=== PATIENT | male | born 1950 ===

== ENCOUNTER 2018-05-31 09:49 | Day surgery (SDC) | payer MEDICARE ==
[~2018-05-31 09:49] MED LIST: Acetaminophen TAB* 325 MG PO PRN; Buffered Lidocaine 0.9% SYRIN* 5 ML/SYR SYRINGE INTRADERM ONE; Cyclopentolate 1% OPTH.SOL* 2 ML BTL ONE; Ketorolac 0.5% OPHTH (NF) 0.5 % 5 ML BTL ONE; Lidocaine 1%* 5 ML VIAL ONE; Lidocaine 2% EPI 1:200000 MPF*10-20 ML VIAL ONE; Neomycin/Polymy/Dex OPTH.SUSP* MAXITROL 0.1% 5 ML ONE; Phenylephrine 2.5% OPTH.SOL* 2 ML BTL ONE; Povidone Iodine 5% OPTH* 30 ML BTL ONE; Proparacaine 0.5% OPHTH.SOL* 15 ML BTL ONE; acetaZOLAMIDE TAB* 250 MG ONE
[2018-05-31] MEDS ORDERED: Midazolam* 1 MG/ML 2 ML VIAL (2 MG) ONE (12:27)
[2018-05-31 13:35] VITALS: BP 134/71
--- NOTE | 2018-05-31 17:43 | OP ---
DATE OF OPERATION: 05/31/18 - [facility] DATE OF : 50 SURGEON: Montana Mejia M.D. PREOPERATIVE DIAGNOSIS: Cataract, left eye. POSTOPERATIVE DIAGNOSIS: Cataract, left eye. OPERATIVE PROCEDURE: Extracapsular cataract extraction with intraocular lens implant and CTR, left eye. DESCRIPTION OF PROCEDURE: The patient was brought to the operating room after being given 1/2% Alcaine with epinephrine drops in the preoperative area. The eye was prepped and draped in the usual sterile fashion. Sterile drape and eyelid speculum were placed. Again, topical 1/2% Alcaine with epinephrine was given. A paracentesis incision was made at the 3 o'clock position with the No.75 blade. Clear cornea incision 2.2 x 2.2-mm was created at the 6 o'clock position starting at the anterior limbus using the 2.2-mm keratome. The anterior chamber was irrigated with 0.4 mL of 1% non-preservative intracameral lidocaine and filled with DisCoVisc. A capsulorrhexis was completed using the cystotome and the Utrata forceps. Hydrodissection was performed with balanced salt solution. The lens nucleus was removed with the Phacoemulsification handpiece without incident. Cortex was removed with the irrigation-aspiration handpiece. The capsular bag was re-inflated using DisCoVisc and an SN60WF 18.5 implant was inserted with the shooter followed by capsular tension ring ACTR12, inserted with its shooter. The irrigation- aspiration handpiece was used to remove all residual DisCoVisc. The eye was refilled with balanced salt solution and the wound checked and found to be watertight. Topical Maxitrol drops were given. Indication for complex cataract surgery: Status post vitrectomy, requiring capsular tension ring. [id number]/[facility] #: [id number] CAROL
== END 2018-05-31 13:11 | disposition home or self-care (01) ==
LOC: OREAST 09:49
PROVIDERS: ATTEND Specialist
DX: H25.812 Combined forms of age-related cataract, left eye (principal); H43.812 Vitreous degeneration, left eye; J44.9 Chronic obstructive pulmonary disease, unspecified; H52.229 Regular astigmatism, unspecified eye
CPT/HCPCS: A9270-GY; J2250; V2632

== ENCOUNTER 2018-06-28 13:00 | Day surgery (SDC) | payer MEDICARE ==
[2018-06-28] MEDS ORDERED: fentaNYL* 50 MCG/ML 2 ML VIAL (100 MCG VIAL) ONE (15:15)
[2018-06-28] MEDS ORDERED: Midazolam* 1 MG/ML 2 ML VIAL (2 MG) ONE ×2 (15:16→15:35)
[2018-06-28 16:16] VITALS: BP 132/76
--- NOTE | 2018-06-29 12:48 | OP ---
DATE OF OPERATION: 06/28/18 [facility] DATE OF : 50 SURGEON: Montana Mejia M.D. PREOPERATIVE DIAGNOSIS: Cataract, right eye. POSTOPERATIVE DIAGNOSIS: Cataract, right eye. OPERATIVE PROCEDURE: Extracapsular cataract extraction with intraocular lens implant and CTR, right eye. DESCRIPTION OF PROCEDURE: The patient was brought to the operating room after being given 1/2% Alcaine with epinephrine drops in the preoperative area. The eye was prepped and draped in the usual sterile fashion. Sterile drape and eyelid speculum were placed. Again, topical 1/2% Alcaine with epinephrine was given. A paracentesis incision was made at the 9 o'clock position with the No.75 blade. Clear cornea incision 2.2 x 2.2-mm was created at the 12 o'clock position starting at the anterior limbus using the 2.2-mm keratome. The anterior chamber was irrigated with 0.4 mL of 1% non-preservative intracameral lidocaine and filled with DisCoVisc. A capsulorrhexis was completed using the cystotome and the Utrata forceps. Hydrodissection was performed with balanced salt solution. The lens nucleus was removed with the Phacoemulsification handpiece without incident. Cortex was removed with the irrigation-aspiration handpiece. The capsular bag was re-inflated using DisCoVisc and an SN60WF 20.5 implant was inserted with the shooter followed by a capsular tension ring, ACTR- 12, inserted with its shooter. The irrigation-aspiration handpiece was used to remove all residual DisCoVisc. The eye was refilled with balanced salt solution and the wound checked and found to be watertight. Topical Maxitrol drops were given. [id number]/[facility] #: [id number] MTDD
== END 2018-06-28 16:09 | disposition home or self-care (01) ==
LOC: OREAST 13:00
PROVIDERS: ATTEND Specialist
DX: H25.811 Combined forms of age-related cataract, right eye (principal); H43.811 Vitreous degeneration, right eye; H52.221 Regular astigmatism, right eye; J44.9 Chronic obstructive pulmonary disease, unspecified; J45.909 Unspecified asthma, uncomplicated; Z87.891 Personal history of nicotine dependence; G89.29 Other chronic pain; Z79.899 Other long term (current) drug therapy
CPT/HCPCS: A9270-GY; J2250; J3010; V2632